=== PATIENT | male | born 1965 | race Caucasian/White ===

== ENCOUNTER 2018-04-11 06:54 | Day surgery (SDC) | payer OTHER ==
[2018-04-11] MEDS ORDERED: MIDAZOLAM 1 MG/ML 2 ML INJ ×3 (10:04)
[2018-04-11] MEDS ORDERED: FENTAnyl 50 MCG/ML VIAL (10:04)
== END 2018-04-11 11:09 | disposition home or self-care (01) ==
LOC: GIL 06:54
DX: Z12.11 Encounter for screening for malignant neoplasm of colon (principal); K64.8 Other hemorrhoids; D12.5 Benign neoplasm of sigmoid colon; D12.2 Benign neoplasm of ascending colon; K57.30 Diverticulosis of large intestine without perforation or abscess without bleeding; I10 Essential (primary) hypertension
CPT/HCPCS: 45380; 88305